=== PATIENT | male | born 1945 | race Caucasian/White ===

== ENCOUNTER 2017-02-18 11:52 | Emergency (ER) | payer OTHER ==
[~2017-02-18] VITALS: Ht 175.3 cm; Wt 78.8 kg
[~2017-02-18 11:52] MED LIST: CONSTULOSE10 GM/15 M PO; NORCO 5/3251 TABLET PO
[2017-02-18] MEDS ORDERED: ASPIRIN325 MG PO (15:12)
[2017-02-18 15:25] LABS: HEMATOCRIT 44.7 % (38.0-50.0); MCH 34.2 PG (29.0-34.0); MCHC 36.7 G/DL (30.0-36.0); MCV 93.3 FL (86-99); PLATELET COUNT 180 K/uL (156-360); RBC DIS.WIDTH-SD 41.4 % (39-53); RED BLOOD COUNT 4.79 M/uL (4.00-5.50)
[2017-02-18 15:33] LABS: CHLORIDE 89 mEq/L (99-109); POTASSIUM 3.7 mEq/L (3.7-5.4); SODIUM 127 mEq/L (136-147)
[2017-02-18 15:35] LABS: GLUCOSE 89 mg/dL (70-99)
[2017-02-18 15:36] LABS: ANION GAP 15 MEQ/L (2-14)
[2017-02-18 15:39] LABS: GFR ESTIMATE (CALCULATED) > 59 mL/min/
[2017-02-18 15:40] LABS: UREA NITROGEN (BUN) 12 mg/dL (9-23)
[2017-02-18] MEDS ORDERED: VIBRAMYCIN100 MG PO (18:13)
[2017-02-18 19:12] LABS: CHLORIDE 92 mEq/L (99-109); POTASSIUM 3.4 mEq/L (3.7-5.4); SODIUM 128 mEq/L (136-147)
[2017-02-18 19:13] LABS: GLUCOSE 93 mg/dL (70-99)
[2017-02-18 19:15] LABS: ANION GAP 11 MEQ/L (2-14)
[2017-02-18 19:17] LABS: GFR ESTIMATE (CALCULATED) > 59 mL/min/
[2017-02-18 19:18] LABS: UREA NITROGEN (BUN) 11 mg/dL (9-23)
[2017-02-18 19:31] VITALS: BP 132/78
== END 2017-02-18 19:31 | disposition home or self-care (01) ==
LOC: EME 11:52
PROVIDERS: Physician Assistant Medical
DX: L03.115 Cellulitis of right lower limb (principal); E87.1 Hypo-osmolality and hyponatremia; W57.XXXA Bitten or stung by nonvenomous insect and other nonvenomous arthropods, initial encounter; I10 Essential (primary) hypertension; F17.200 Nicotine dependence, unspecified, uncomplicated
CPT/HCPCS: 73701; 80048; 80048 91; 83605; 85027; 87040; 99281; 99284; J7030

== ENCOUNTER 2017-08-06 10:19 | Observation (INO) | payer OTHER ==
[~2017-08-06] VITALS: Ht 175.3 cm; Wt 68.9 kg
[~2017-08-06 10:19] MED LIST changes: +ASPIRIN325 MG PO; +VIBRAMYCIN100 MG PO
[2017-08-06 10:50] LABS: HEMATOCRIT 45.6 % (38.0-50.0); HEMOGLOBIN 16.2 G/DL (12.5-16.6); MCH 33.3 PG (29.0-34.0); MCHC 35.5 G/DL (30.0-36.0); MCV 93.8 FL (86-99); PLATELET COUNT 218 K/uL (156-360); RBC DIS.WIDTH-CV 13.5 % (11.8-14.6); RBC DIS.WIDTH-SD 46.6 % (39-53); RED BLOOD COUNT 4.86 M/uL (4.00-5.50); WHITE BLOOD COUNT 7.7 K/uL (4.1-10.2)
[2017-08-06 11:06] LABS: CHLORIDE 101 mEq/L (99-109); POTASSIUM 3.8 mEq/L (3.7-5.4); SODIUM 138 mEq/L (136-147)
[2017-08-06 11:08] LABS: GLUCOSE 119 mg/dL (70-99)
[2017-08-06 11:10] LABS: TROP-I INTERPRETATION NEGATIVE; TROPONIN-I 0.01 ng/mL (0.0-0.30)
[2017-08-06 11:12] LABS: CREATININE 1.2 mg/dL (0.6-1.3); GFR ESTIMATE (CALCULATED) > 59 mL/min/ (58.99-99999)
[2017-08-06 11:13] LABS: UREA NITROGEN (BUN) 14 mg/dL (9-23)
[2017-08-06] MEDS ORDERED: MEGA MULTI FOR1 EAC1 PO (12:56)
[2017-08-06 13:27] LABS: HDL CHOLESTEROL 85 MG/DL (Desirable>=40); LDL CHOLESTEROL 138 mg/dL (Desirable<100); NON-HDL CHOLESTEROL 158 mg/dL (Desirable<160); TOTAL CHOLESTEROL 243 mg/dL (Desirable<200); TRIGLYCERIDES 101 MG/DL (Normal: <150)
[2017-08-06 15:16] LABS: HEMOGLOBIN A1c (GLYCOHEMOGLOB) 5.5 % (Below 5.7)
[2017-08-06 15:46] VITALS: BP 165/94
[2017-08-06 17:32] LABS: TROP-I INTERPRETATION NEGATIVE; TROPONIN-I < 0.01 ng/mL (0.0-0.30)
[2017-08-06 20:21] VITALS: BP 123/81
[2017-08-06 22:09] LABS: TROP-I INTERPRETATION NEGATIVE; TROPONIN-I 0.01 ng/mL (0.0-0.30)
[2017-08-07] VITALS: BP 131/81
[2017-08-07 04:40] VITALS: BP 112/63
[2017-08-07 08:00] VITALS: BP 151/86
[2017-08-07] MEDS ORDERED: AMLODIPINE BESYL5 MG PO (10:09)
[2017-08-07] MEDS ORDERED: LISINOPRIL20 MG PO (10:12)
[2017-08-07 11:34] VITALS: BP 169/94
== END 2017-08-07 12:56 | disposition home or self-care (01) ==
LOC: EME 10:19 → EDOF 11:16 → ENRESERV 11:19 → 5WEST 15:26
PROVIDERS: Internal Medicine
DX: R07.9 Chest pain, unspecified (principal); I16.1 Hypertensive emergency; I10 Essential (primary) hypertension; I27.20 Pulmonary hypertension, unspecified; F17.200 Nicotine dependence, unspecified, uncomplicated; Z82.49 Family history of ischemic heart disease and other diseases of the circulatory system
CPT/HCPCS: 71046; 80048; 80061; 83036; 84484; 85027; 93005; 93306; G0378; J0360; J1650